=== PATIENT | female | born 1980 | race Caucasian/White ===

== ENCOUNTER 2021-12-29 06:52 | Emergency (ER) | payer BC, MEDICAID ==
[~2021-12-29] VITALS: Ht 172.7 cm; Wt 104.5 kg
[~2021-12-29 06:52] MED LIST: PRE NATAL VITAMINS PO
[2021-12-29] MEDS ORDERED: normal saline 1000ml 1,000 ML IV ONE (06:55)
[2021-12-29] MEDS ORDERED: pantoprazole 40 MG vial IV ONE (06:55)
[2021-12-29] MEDS ORDERED: mag hydrox/Alum hydrox/simeth 30ml oral suspension PO ONE (07:00)
[2021-12-29] MEDS ORDERED: LIDOcaine Viscous 15ml cup MM ONE (07:00)
[2021-12-29] MEDS ORDERED: pantoprazole 40MG/NS 100ML BAG 100 ML IV ONE (07:10)
[2021-12-29 07:44] LABS: CLARITY,URINE CLEAR (Clear); GLUCOSE, URINE NEGATIVE (Neg); KETONES,URINE NEGATIVE (Neg); LEUKOCYTE ESTERASE ,URINE NEGATIVE (Neg); NITRITES, URINE NEGATIVE (Neg); OCCULT BLOOD,URINE NEGATIVE (Neg); PROTEIN,URINE NEGATIVE (Neg); UROBILINOGEN,URINE 0.2 E.U/dL (0.2-1.0)
[2021-12-29] MEDS ORDERED: PANT20TA18 PO (07:45)
[2021-12-29 07:48] LABS: BASOPHILS % (AUTO) 0.3 % (0-1); EOSINOPHILS # (AUTO) 0.1 X10'3 (0-0.9); EOSINOPHILS % (AUTO) 1.8 % (0-6); HEMATOCRIT 40.7 % (35.0-45.0); HEMOGLOBIN 13.7 g/dl (12.0-16.0); LYMPHOCYTES # (AUTO) 1.5 X10'3 (1.1-4.8); LYMPHOCYTES % (AUTO) 20.8 % (21-51); MEAN CORPUSCULAR HEMOGLOBIN 29.6 PG (27.0-31.0); MEAN CORPUSCULAR HGB CONC 33.8 g/dL (33.0-36.5); MEAN CORPUSCULAR VOLUME 87.6 FL (78-98); MEAN PLATELET VOLUME 8.7 FL (7.4-10.4); MONOCYTES # (AUTO) 0.6 X10'3 (0-0.9); NEUTROPHILS # (AUTO) 5.1 X10'3 (1.8-7.7); NEUTROPHILS % (AUTO) 69.1 % (42-75); PLATELET COUNT 216 X10'3 (140-440); RED BLOOD COUNT 4.64 X10'6 (4.20-5.60); RED CELL DISTRIBUTION WIDTH 13.5 % (11.5-14.5); WHITE BLOOD COUNT 7.3 X10'3 (4.5-11.0)
[2021-12-29 07:53] LABS: ALANINE AMINOTRANSFERASE 25 U/L (12-78); ALBUMIN 3.8 G/DL (3.4-5.0); ALKALINE PHOSPHATASE 64 IU/L (46-116); ANION GAP 14 (8-16); ASPARTATE AMINO TRANSFERASE 15 U/L (10-37); BILIRUBIN,TOTAL 0.5 MG/DL (0.1-1.0); BLOOD UREA NITROGEN 8 MG/DL (7-18); BUN/CREATININE RATIO 10.5 (6.6-38.0); CALCIUM 8.7 MG/DL (8.5-10.1); CHLORIDE 107 MMOL/L (99-107); CREATININE 0.76 MG/DL (0.40-0.90); GLUCOSE 131 MG/DL (70-104); POTASSIUM 3.9 MMOL/L (3.5-5.1); SODIUM 142 MMOL/L (135-145); TOTAL CARBON DIOXIDE 21.5 MMOL/L (24-32); TOTAL PROTEIN 7.6 G/DL (6.4-8.2); eGFR 83 ML/MIN
[2021-12-29 07:57] LABS: C-REACTIVE PROTEIN 0.28 MG/DL (0.0-0.5)
[2021-12-29 07:59] LABS: COLOR,URINE STRAW (Yellow); UA COLLECTION TYPE CLN CATCH MIDSTREAM
[2021-12-29 08:50] LABS: CHOL/HDL RATIO 2.9 (0.00-4.99); CHOLESTEROL 175 MG/DL (0-200); HDL CHOLESTEROL 61 MG/DL (35-60); HEMOGLOBIN A1C 5.9 % (4.5-6.2); LDL CHOLESTEROL 101 MG/DL (50-100); TRIGLYCERIDES 105 MG/DL (20-135)
[2021-12-29 09:09] LABS: APTT 32 SECONDS (22-32); D-DIMER 0.27 MG/L FEU (0-0.50)
[2021-12-29] MEDS ORDERED: SUCR1TAB PO (09:24)
[2021-12-29 10:00] VITALS: BP 132/90
--- NOTE | 2021-12-29 10:08 | NUR ---
[facility]
--- NOTE | 2021-12-29 10:40 | NUR ---
Pt given and understands d/c instructions. IV d/c'd, catheter was intact. Ambulatory with a steady gait.
== END 2021-12-29 10:40 | disposition home or self-care (01) ==
LOC: ER 06:53
DX: R07.89 Other chest pain (principal); K21.9 Gastro-esophageal reflux disease without esophagitis; Z72.89 Other problems related to lifestyle; Z79.899 Other long term (current) drug therapy
CPT/HCPCS: 36415; 71045; 80053; 80061; 81003; 83036; 83735; 84484; 85025; 85379; 85610; 85651; 85730; 86140; 93005; 96361; 96374; 99285; C9113; J7030